=== PATIENT | female | born 1955 | race Caucasian/White ===

== ENCOUNTER 2016-12-03 06:25 | Day surgery (SDC) | payer OTHER ==
[~2016-12-03] VITALS: Ht 160 cm; Wt 99.6 kg
[2016-12-03] VITALS (8 sets, daily range): BP systolic 112–142; BP diastolic 50–73; PULSE 68–77; RESP 12–16; O2SAT 95–100
[~2016-12-03 06:25] MED LIST: NITR0.4T SL
[2016-12-03] MEDS ORDERED: Ondansetron 2 mg/mL 2 mL Inj ONE (06:26)
[2016-12-03] MEDS ORDERED: Propofol 10,000 mCg/mL 20 mL Inj ONE (06:26)
[2016-12-03] MEDS ORDERED: fentaNYL-PF 50 mCg/mL 2 mL Inj ONE (06:26)
[2016-12-03] MEDS ORDERED: Lidocaine PF 1% 30 mL Inj ONE (06:26)
[2016-12-03] MEDS ORDERED: Dexamethasone 4 mg/mL Inj ONE (06:26)
[2016-12-03] MEDS: Lactated Ringer's 1,000 ML IV SCH ×2 (06:37→08:21)
--- NOTE | 2016-12-03 08:19 | PCM.HPANE ---
Patient Data Surgeon Admitting Provider: Attending Provider:All Kidd MD Primary Care Physician:Nikki Storm MD Other Provider:Jazmin Gilmoreingham Anesthesia Reason for Visit Right Breast Hematoma Ht/WT & BMI Height (Feet): 5 Height (Inches): 3 Weight (Kilograms): 99.6 Body Mass Index 38.00 Allergies Coded Allergies: No Known Allergies (Verified , 11/28/16) Past Anesthesia History Anesthesia History: Denies:: Anesthesia Reactions, Malignant Hyperthermia Diabetes History Hx Diabetes?: No MRSA MRSA: No Medications Home Meds Incl Beta Alaina: No Reported Medications Nitroglycerin SL (Nitrostat)0.4 Mg Tab.subl0.4 Mg SL Q5MIN PRN chest pain #1 BOTTLE 11/28/16 History History of ENT Problems?: Yes HEENT History: Denies:: Hearing Problem (HX OF EAR INFECTIONS) Denture Type: Full- Upper Other HEENT Pertinent History: DENTURES VS DENTAL CAPS Hx of Heart Problems?: Yes Cardiovascular History: Positive for:: Chest Pain (2013 TESTING NEG) Denies:: Congestive Heart Failure Heart Murmur (MPS 12/2013 EF 71%) Hypertension Valvular Heart Disease Hx of Respiratory Problem?: No Respiratory History: Denies:: Tuberculosis Use of C-PAP Machine Hx Neurologic Problems?: Yes Neurological History: Positive for:: Seizures (LAST SEIZURE 1977, NO MEDS SINCE AGE OF 18) Hx of GI Problems?: Yes Gastrointestinal History: Positive for:: Hiatal Hernia (S/P RPR) Liver Disease (S/P UMBILICAL HERNIA RPR & BX OF LIVER LESION) Hx of Problems?: Yes Genitourinary History: Positive for:: Urinary Tract Infection (HX OF) Female Hx: Positive for:: Problems with Breasts? (CHRONIC RT BREAST HEMATOMA ( TRAUMA 10/2016)=CURRENT PROBLEM) Denies:: Currently Skin History: Denies:: History Skin Disorders? 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 HERNIA RPR,TVH/BSO) Hx Any Other Health Problems?: Yes Other History: Positive for:: Hospitalization (CHILDBIRTH) Denies:: Cancer Endocrine Disease Thyroid Disease History Blood Transfusions: Denies:: Blood Transfusions Hx Diabetes: No Hx Alcohol Use: NoHx Substance Use: NoHave You Smoked inLast 12 mo: No Stop/Bang S-Snoring: Do You Snore Loudly: No T-Tired: feel tired, fatigued: Yes O-Obsered: Observed not breath: No P-Blood Pressure: treated: No B- Body Mass Index > 35 kg/m2: Yes A- Age over 50: Yes N- Neck Large Circumference: Yes G- Gender Male: No SABA Total Score: 4 Risk Assessment Category Category 1A: Patient has history of documented sleep apnea, and HAS NOT received any narcotic, sedative or anesthesia administration during this stay. Category 1B: Patient has history of documented sleep apnea, and HAS received any narcotic , sedative or anesthesia administration during this stay Category 2: Patient has SUSPECTED Obstructive Sleep Apnea, and HAS received any narcotic , sedative or anesthesia administration during this stay. Category 3: Patient has SUSPECTED Obstructive Sleep Apnea and HAS NOT received narcotic, sedative or anesthesia administration during this stay. Category 4: Outpatient in Procedural Areas with known sleep apnea or who screen positive for High Risk via the STOP/BANG questionnaire. Exam Exam Vital Signs Vital Signs Date Time Temp Pulse Resp B/P Pulse Ox O2 Delivery O2 Flow Rate FiO2 12/03/16 06:53 36.2 75 16 142/73 96 Room Air General Appearance: Alert, Oriented X3, Cooperative, No Acute Distress HEENT/AIRWAY: MP 2 Lungs: Normal Air Movement Heart: Regular Rate/Rhythm Meds/Labs/Diagnostics Admission Meds Current Medications Lactated Ringer's (Lr) 1,000 ml @ 120 mls/hr Q8H20M IV Last administered on t 06:37; Start 12/03/16 at 05:00; Stop 12/03/16 at 13:19 Plan Impression Patient chart reviewed, patient interviewed and anesthestic plan with risks, benefits, and alternatives discussed, and informed consent obtained. NPO Status: mn ASA Physical Status: ASA2 Mod Systemic Disease Anesthetic Plan: GA Bene/Risks/Altern/Consents: Yes HP Complete Prior to Induction: Yes Naa Youssef DO Dec 03, 2016 08:19
[2016-12-03] MEDS ORDERED: Lactated Ringer's 1,000 ML IV SCH (08:33)
[2016-12-03] MEDS ORDERED: Lactated Ringer's 500 ML IV PRN (08:33)
[2016-12-03] MEDS ORDERED: MetoCLOpramide 5 mg/mL 2 mL Inj IVPUSH PRN (08:35)
[2016-12-03] MEDS ORDERED: EPHEDrine Sulfate 50 mg/mL Inj IVPUSH PRN (08:35)
[2016-12-03] MEDS ORDERED: HYDROmorphone 1 mg/mL Inj IVPUSH PRN (08:35)
[2016-12-03] MEDS ORDERED: Ondansetron 2 mg/mL 2 mL Inj IVPUSH PRN (08:35)
[2016-12-03] MEDS ORDERED: Phenylephrine 10,000 mCg/mL Inj IVPUSH PRN (08:35)
[2016-12-03] MEDS ORDERED: Bupivacaine-MPF 0.5% 30 mL Inj INFILTRATE ONE (08:46)
--- NOTE | 2016-12-03 09:58 | OP ---
[address] [address] OPERATIVE REPORT PATIENT: MANFRED TALBOT I : 1955 MR#: [id number] ADMIT: 12/03/2016 JOB ID: [id number] DATE OF SURGERY: 12/03/2016 ANESTHESIA: General. PREOPERATIVE DIAGNOSIS(ES): Chronic right breast hematoma. POSTOPERATIVE DIAGNOSIS(ES): Chronic right breast hematoma. OPERATIVE PROCEDURE: Excision of right breast hematoma and capsule (approximately 12 cm in diameter). SURGEON: Dr. All Kidd. CRM DYNAMICS DEVELOPER: Yevgeniy King PA-C (the child welfare assistant was required for the safe and timely completion of the case) and GEORGES Flores. COMPLICATIONS: None. ESTIMATED BLOOD LOSS: 50 cc. CONDITION: Satisfactory. SPECIMEN: Right breast hematoma capsule. DRAINS: A 19-Occitan KB drain was left in the hematoma cavity. FINDINGS: As expected there was a large hematoma in the right breast. There was a chronic capsule which was excised. The hematoma extended down to the chest wall. INDICATIONS/SIGNIFICANT HISTORY: The patient is a 61-year-old female, who almost two months ago tripped while climbing some stairs and fell with her breast striking a iron chair. She immediately developed swelling and bruising. She presented to [facility] and was diagnosed hematoma and a decision was made for conservative management. However, this did not resolve and she was eventually referred to me. I elected to undergo operative excision. OPERATIVE TECHNIQUE: The patient was taken to the operating room and placed in the supine position. General anesthesia was administered and the right breast was prepped and draped in a standard surgical fashion. A procedural pause performed. The hematoma was easily palpable in the upper inner quadrant of the right breast. I made a radial incision extending from the areolar margin over the extent of the hematoma. Dissection was carried down through skin and subcutaneous tissue. Eventually I encountered the hematoma capsule. The hematoma was drained. I then excised the entire capsule of the single specimen. Hemostasis was then achieved using electrocautery. The breast was then reapproximated using 3-0 Vicryl deep dermal followed by a running 4-0 Monocryl. Prior to closure, a 19-Occitan KB drain was placed into the wound cavity and brought out through the lateral breast. Local anesthetic was injected. A chest wrap was then applied and the case was concluded.
--- NOTE | 2016-12-03 10:24 | PCM.ANEP2 ---
Post Anesthesia Evaluation ASA/CMS Post Anesthesia VS in Patient's Normal Range?: Yes Resp Stable; Airway Patent?: Yes CV Function & Hydration Stable: Yes Mental Status Recovered?: Yes Pain control Satisfactory?: Yes N/V Control Satisfactory?: Yes Naa Youssef DO Dec 03, 2016 10:24
--- NOTE | 2016-12-03 10:24 | PCM.ANEP1 ---
Post Anesthesia Phase 1 PACU Phase 1 Assessment Vital Signs Vital Signs Date Time Temp Pulse Resp B/P Pulse Ox O2 Delivery O2 Flow Rate FiO2 12/03/16 06:53 36.2 75 16 142/73 96 Room Air Anesthetic Administered: GA Level of Alertness: Awake, talking GIPSON's with Equal Strength: Yes Pain: No Nausea or Vomiting: No Oxygen Delivery: Simple Mask Lungs: Normal Air Movement Naa Youssef DO Dec 03, 2016 10:24
[2016-12-03] MEDS: fentaNYL-PF 50 mCg/mL 2 mL Inj IVPUSH PRN ×3 (10:34→11:03)
[2016-12-03] MEDS ORDERED: HYDROcodone-APAP 5-325 mg Tablet PO PRN (11:40)
--- NOTE | 2016-12-05 15:53 | PATH ---
SURGICAL PATHOLOGY Attending Physician:All Kidd MD CASE STATUS: Signed Out PATIENT NAME: MANFRED TALBOT I. PID: [id number] : 1955 DATE COLLECTED:12/03/2016 18:57 SPECIMEN: Breast, Implant Capsule CLINICAL HISTORY: RIGHT BREAST CHRONIC HEMATOMA CAPSULE FINAL DIAGNOSIS: Right Breast Implant Capsule: Fibrous and fatty capsule with organizing hemorrhage and marked fat necrosis. No evidence of neoplasia. ICD10 N64.1 GROSS DESCRIPTION: The specimen is received in formalin, labeled with the patient's name, sublabeled as right breast chronic hematoma capsule and consists of an opened fibrous and fatty breast capsule (133 g, 8.8 x 8.2 by 4.5 cm) with no overlying skin. The lining is covered in coagulated blood. No nodules or masses are identified. Section code: (A-D) breast capsule, serially sectioned, client relations representative. 12/04/16 MICRO DESCRIPTION: Please see diagnosis. ICD-9 CODES: CPT CODES: 1: 80621 Electronically Signed Out Char Collazo MD [facility] [address], [place] [address] Technical component performed at [facility], [address] [place] [address] Ave[address], [place], [address]
== END 2016-12-03 23:59 | disposition home or self-care (01) ==
LOC: SAS 06:25
PROVIDERS: ATTEND General Practice
DX: S20.01XA Contusion of right breast, initial encounter (principal); W01.190A Fall on same level from slipping, tripping and stumbling with subsequent striking against furniture, initial encounter; Y93.39 Activity, other involving climbing, rappelling and jumping off; Y92.018 Other place in single-family (private) house as the place of occurrence of the external cause; G40.909 Epilepsy, unspecified, not intractable, without status epilepticus; N39.46 Mixed incontinence; Z79.82 Long term (current) use of aspirin
CPT/HCPCS: 19120; J1100; J2405; J3010; J7120